=== PATIENT | female | born 1935 | race Caucasian/White ===

== ENCOUNTER 2020-03-28 14:41 | Observation (INO) | payer MEDICARE, BC ==
[2020-03-28] MEDS ORDERED: Sodium Chloride 0.9% 500 ML IV SCH (15:15)
[2020-03-28] MEDS: Sodium Chloride 0.9% 10 ML Syringe FLUSH PRN ×2 (15:22→19:49)
--- NOTE | 2020-03-28 15:27 | EDM.PDOC ---
ED HPI GENERAL MEDICAL PROBLEM - General Chief Complaint: General Stated Complaint: IN BY AMBULANCE Time Seen by Provider: 03/28/20 15:15 Source of Information: Reports: Patient, Old Records, RN, RN Notes Reviewed History Limitations: Reports: No Limitations - History of Present Illness INITIAL COMMENTS - FREE TEXT/NARRATIVE: Pt arrives to ER from home by ambulance with c/o of generalized weakness since getting a steroid injection to her neck yesterday. Pt states that every time she has steroid injections she gets a similar reaction, but this time it was a little more severe. Pt states she became weak and for a few hours felt too weak to walk. Now that she arrived in the ER she is able to walk again. Pt c/o her mouth very dry and she hasn't been getting up to drink water. Onset Date: 03/27/20 Duration: Improving Location: Reports: Generalized Severity: Moderate Improves with: Reports: None Worsens with: Reports: None Associated Symptoms: Reports: No Other Symptoms - Related Data Allergies Allergy/AdvReac Type Severity Reaction Status Date / Time atorvastatin [From Lipitor] Allergy Muscle Verified 03/28/20 15:05 Aches chlorpromazine Allergy Facial Verified 03/28/20 15:05 [From Thorazine] Swelling hydromorphone [From Dilaudid] Allergy Nausea Verified 03/28/20 15:05 lisinopril Allergy Cannot Verified 03/28/20 15:05 Remember meperidine [From Demerol] Allergy Nausea and Verified 03/28/20 15:05 Vomiting Contrast Dye Allergy Anaphylactic Uncoded 03/28/20 15:05 Shock Home Meds: Home Meds Aspirin [Adult Low Dose Aspirin EC] 81 mg PO DAILY 03/17/19 [History] Calcium Carbonate [Tums] 300 mg PO .PRN 03/17/19 [History] Latanoprost 1 drop EYEBOTH BEDTIME 03/17/19 [History] Omeprazole 20 mg PO DAILY 03/17/19 [History] hydroCHLOROthiazide [Hydrochlorothiazide] 25 mg PO DAILY 03/17/19 [History] Vitamin B Complex [B Complex] 1 each O2AERO DAILY 03/24/19 [History] Past Medical History HEENT History: Reports: Glaucoma, Impaired Vision, Other (See Below) Other HEENT History: wears glasses. upper partial. 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 compressed radial and ulnar nerve Neurological History: Reports: None Psychiatric History: Reports: Depression Endocrine/Metabolic History: Reports: Hypothyroidism Hematologic History: Reports: Anemia, B12 Deficiency, Blood Transfusion(s) Immunologic History: Reports: None Oncologic (Cancer) History: Reports: None Dermatologic History: Reports: None - Infectious Disease History Infectious Disease History: Reports: Chicken Pox, Measles, Mumps, Shingles - Past Surgical History HEENT Surgical History: Reports: Cataract Surgery Other HEENT Surgeries/Procedures: bilateral cataract surgery Cardiovascular Surgical History: Reports: None GI Surgical History: Reports: EGD, Other (See Below) Other GI Surgeries/Procedures: Exploratory Lap [place] Female Surgical History: Reports: Breast Biopsy, Section, Other (See Below) Other Female Surgeries/Procedures: HX of uterine surgery. x2 C-sections Musculoskeletal Surgical History: Reports: Shoulder Surgery, Other (See Below) Other Musculoskeletal Surgeries/Procedures:: Left ankle fx repair (pins and rods in place). Right shoulder surgery (has a plate). Right hand tendon lengthening. Intercostal block x2 Social & Family History - Family History Family Medical History: Noncontributory - Tobacco Use Smoking Status *Q: Never Smoker Second Hand Smoke Exposure: No - Caffeine Use Caffeine Use: Reports: None Other Caffeine Use: 1-2 cups daily - Recreational Drug Use Recreational Drug Use: No - Living Situation & Occupation Living situation: Reports: , with Spouse Occupation: Retired ED ROS GENERAL - Review of Systems Review Of Systems: Comprehensive ROS is negative, except as noted in HPI. ED EXAM, GENERAL - Physical Exam Exam: See Below Exam Limited By: No Limitations General Appearance: Alert, No Apparent Distress, Other (Frail elderly appearing female) Eye Exam: Bilateral Eye: Normal Inspection Nose: Normal Inspection Throat/Mouth: Normal Inspection, Normal Lips, Normal Voice, No Airway Compromise Head: Atraumatic, Normocephalic Neck: Normal Inspection, Non-Tender, Limited Range of Motion (Chronic/stable per pt). No: Lymphadenopathy (L), Lymphadenopathy (R) Respiratory/Chest: No Respiratory Distress, Lungs Clear, No Accessory Muscle Use, Chest Non-Tender, Decreased Breath Sounds Cardiovascular: Regular Rate, Rhythm, No Edema Peripheral Pulses: 3+: Radial (L), Radial (R) GI/Abdominal: Normal Bowel Sounds, Soft, Non-Tender Extremities: Non-Tender, No Pedal Edema, Normal Capillary Refill, Other (Left hand with subacute/resolving bruise and hematoma with dressing on left wrist, no removed for exam. Right upper extremity with intact motor and sensation, ch ronic arthritic joints). No: Joint Swelling Neurological: Alert, Oriented, CN II-XII Intact, Normal Cognition, No Motor/Sensory Deficits Psychiatric: Normal Affect, Normal Mood Skin Exam: Warm, Dry, Intact Course - Vital Signs Last Recorded V/S: Last Vital Signs Temp 98.2 F 03/28/20 15:02 Pulse 103 H 03/28/20 15:02 Resp 18 03/28/20 15:02 BP 166/65 H 03/28/20 15:02 Pulse Ox 93 L 03/28/20 15:02 - Orders/Labs/Meds Orders: Active Orders 24 hr Category Date Time Status Peripheral IV Care [RC] . DIRECTED Care 03/28/20 15:14 Active Sodium Chloride 0.9% [Normal Saline] 500 ml Med 03/28/20 15:15 Active IV .BOLUS Sodium Chloride 0.9% [Saline Flush] Med 03/28/20 15:13 Active 10 ml FLUSH ASDIRECTED PRN Peripheral IV Insertion Adult [OM.PC] Stat Oth 03/28/20 15:13 Ordered Medication Orders Sodium Chloride (Normal Saline) 500 mls @ 500 mls/hr IV .BOLUS DANILE Last Admin: 03/28/20 15:21 Dose: 500 mls/hr Documented by: DANIELLE Sodium Chloride (Saline Flush) 10 ml FLUSH ASDIRECTED PRN PRN Reason: Keep Vein Open Last Admin: 03/28/20 15:22 Dose: 10 ml Documented by: DANIELLE Labs: Laboratory Tests 03/28/20 03/28/20 Range/Units 15:21 15:21 WBC 8.3 (5.0-10.0) 10^3/uL RBC 3.99 L (4.2-5.4) 10^6/uL Hgb 10.4 L (12.0-16.0) g/dL Hct 33.6 L (37.0-47.0) % MCV 84.2 (80-100) fL MCH 26.1 L (27.0-34.0) pg MCHC 31.0 L (33.0-35.0) g/dL Plt Count 331 (150-450) 10^3/uL Neut % (Auto) 77.5 H (42.2-75.2) % Lymph % (Auto) 14.6 L (20.5-50.1) % [place] % (Auto) 7.1 (2-8) % Eos % (Auto) 0.6 L (1.0-3.0) % Baso % (Auto) 0.2 (0.0-1.0) % Sodium 135 L (136-145) mmol/L Potassium 3.9 (3.5-5.1) mmol/L Chloride 98 (98-107) mmol/L Carbon Dioxide 31 (21-32) mmol/L Anion Gap 9.9 (7-13) mEq/L BUN 19 H (7-18) mg/dL Creatinine 1.12 H (0.55-1.02) mg/dL Est Cr Clr Drug Dosing 35.00 mL/min Estimated GFR (MDRD) 46 BUN/Creatinine Ratio 17.0 (No establ ref range) Glucose 93 (74-99) mg/dL Calcium 8.7 (8.5-10.1) mg/dL Total Bilirubin 0.3 (0.2-1.0) mg/dL AST 19 (15-37) U/L ALT 15 (14-59) U/L Alkaline Phosphatase 85 (46-116) U/L Total Protein 7.0 (6.4-8.2) g/dL Albumin 2.7 L (3.4-5.0) g/dL Globulin 4.3 Albumin/Globulin Ratio 0.63 Meds: Medications Generic Name Dose Route Start Last Admin Trade Name Freq PRN Reason Stop Dose Admin Sodium Chloride 500 mls @ 500 mls/hr 03/28/20 15:15 03/28/20 15:21 Normal Saline IV 500 mls/hr .BOLUS DANIEL Administration Sodium Chloride 10 ml 03/28/20 15:13 03/28/20 15:22 Saline Flush FLUSH 10 ml ASDIRECTED PRN Administration Keep Vein Open - Re-Assessments/Exams Free Text/Narrative Re-Assessment/Exam: 03/28/20 15:52 Pt reports feeling much better, able to ambulate independently. Plan to d/c pt home to f/u in clinic for recheck later this week or early next week. Departure - Departure Time of Disposition: 16:16 Disposition: Home, Self-Care 01 Condition: Fair Clinical Impression: Dehydration, Generalized weakness, Medication side effect - Discharge Information *PRESCRIPTION DRUG MONITORING PROGRAM REVIEWED*: Not Applicable *COPY OF PRESCRIPTION DRUG MONITORING REPORT IN PATIENT CRYSTAL: Not Applicable Instructions: Dehydration, Adult, [id number], Weakness, [id number] Forms: ED Department Discharge Additional Instructions: Drink plenty of water, and eat healthy meals. Follow up in clinic if not improving as expected. Sepsis Event Note (ED) - Evaluation Sepsis Screening Result: No Definite Risk - Focused Exam Vital Signs: Vital Signs Temp Pulse Resp BP Pulse Ox 03/28/20 15:02 98.2 F 103 H 18 166/65 H 93 L - My Orders Last 24 Hours: My Active Orders 03/28/20 15:13 Sodium Chloride 0.9% [Saline Flush] 10 ml FLUSH ASDIRECTED PRN Peripheral IV Insertion Adult [OM.PC] Stat 03/28/20 15:14 Peripheral IV Care [RC] . DIRECTED 03/28/20 15:15 Sodium Chloride 0.9% [Normal Saline] 500 ml IV .BOLUS - Assessment/Plan Last 24 Hours: My Active Orders 03/28/20 15:13 Sodium Chloride 0.9% [Saline Flush] 10 ml FLUSH ASDIRECTED PRN Peripheral IV Insertion Adult [OM.PC] Stat 03/28/20 15:14 Peripheral IV Care [RC] . DIRECTED 03/28/20 15:15 Sodium Chloride 0.9% [Normal Saline] 500 ml IV .BOLUS
[2020-03-28 15:47] LABS: ANION GAP 9.9 mEq/L (7-13)
[2020-03-28] MEDS ORDERED: Ondansetron 4 MG/2 ML SDV IVPUSH PRN (18:04)
[2020-03-28] MEDS ORDERED: Acetaminophen 325 MG Tab PO PRN (18:04)
[2020-03-28] MEDS ORDERED: Ondansetron 4 MG Tab.DIS PO PRN (18:04)
[2020-03-28] MEDS ORDERED: Calcium Carbonate 500 MG Tab.Chew PO PRN (18:11)
[2020-03-28] MEDS ORDERED: Sodium Chloride 0.9% 1,000 ML IV SCH (18:15)
--- NOTE | 2020-03-28 18:49 | PCM.HP ---
H&P History of Present Illness - General Date of Service: 03/28/20 Admit Problem/Dx: Admission Diagnosis/Problem Admission Diagnosis/Problem Weakness Source of Information: Patient, Old Records, Provider - History of Present Illness Initial Comments - Free Text/Narative: Patient is a 84-year-old female with medical history significant for hypertension, dyslipidemia, postherpetic neuralgia, intercostal neuralgia, she of fall over 10 years ago with right arm fracture and radial and ulnar nerve injury. Had hardware placed. Reports that she underwent steroid shot to her neck for paresthesias in her right upper extremity. States that she had this treatment several years ago and did not have any issues with them. Reports that she is had profound weakness and spinning sensation that started right after getting the shot yesterday. States that she has felt weak and so decided to com e to the emergency room. Denies any falls. Reports that she had nausea yesterday but did not have any emesis. Reports intermittent cough with swallowing. Cough is nonproductive. Denies chest pain, shortness of breath, fevers, chills, diarrhea, constipation, dysuria, hematuria, edema, or any new symptoms. Denies tobacco, alcohol, or illicit drug use. - Related Data Allergies/Adverse Reactions: Allergies Allergy/AdvReac Type Severity Reaction Status Date / Time atorvastatin [From Lipitor] Allergy Muscle Verified 03/28/20 15:05 Aches chlorpromazine Allergy Facial Verified 03/28/20 15:05 [From Thorazine] Swelling hydromorphone [From Dilaudid] Allergy Nausea Verified 03/28/20 15:05 lisinopril Allergy Cannot Verified 03/28/20 15:05 Remember meperidine [From Demerol] Allergy Nausea and Verified 03/28/20 15:05 Vomiting Contrast Dye Allergy Anaphylactic Uncoded 03/28/20 15:05 Shock Home Medications: Home Meds Aspirin [Adult Low Dose Aspirin EC] 81 mg PO DAILY 03/17/19 [History] Calcium Carbonate [Tums] 300 mg PO DAILY PRN 03/17/19 [History] Latanoprost 1 drop EYEBOTH BEDTIME 03/17/19 [History] Omeprazole 20 mg PO DAILY 03/17/19 [History] hydroCHLOROthiazide [Hydrochlorothiazide] 25 mg PO DAILY 03/17/19 [History] Past Medical History HEENT History: Reports: Glaucoma, Impaired Vision, Other (See Below) Other HEENT History: wears glasses. upper partial. 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 compressed radial and ulnar nerve Neurological History: Reports: None Psychiatric History: Reports: Depression Endocrine/Metabolic History: Reports: Hypothyroidism Hematologic History: Reports: Anemia, B12 Deficiency, Blood Transfusion(s) Immunologic History: Reports: None Oncologic (Cancer) History: Reports: None Dermatologic History: Reports: None - Infectious Disease History Infectious Disease History: Reports: Chicken Pox, Measles, Mumps, Shingles - Past Surgical History HEENT Surgical History: Reports: Cataract Surgery Other HEENT Surgeries/Procedures: bilateral cataract surgery Cardiovascular Surgical History: Reports: None GI Surgical History: Reports: EGD, Other (See Below) Other GI Surgeries/Procedures: Exploratory Lap [place] Female Surgical History: Reports: Breast Biopsy, Section, Other (See Below) Other Female Surgeries/Procedures: HX of uterine surgery. x2 C-sections Musculoskeletal Surgical History: Reports: Shoulder Surgery, Other (See Below) Other Musculoskeletal Surgeries/Procedures:: Left ankle fx repair (pins and rods in place). Right shoulder surgery (has a plate). Right hand tendon lengthening. Intercostal block x2 Social & Family History - Family History Family Medical History: Noncontributory - Tobacco Use Smoking Status *Q: Never Smoker Used Tobacco, but Quit: No Second Hand Smoke Exposure: No - Caffeine Use Caffeine Use: Reports: Coffee Other Caffeine Use: 1-2 cups daily - Recreational Drug Use Recreational Drug Use: No - Living Situation & Occupation Living situation: Reports: , with Spouse Occupation: Retired H&P Review of Systems - Review of Systems: Review Of Systems: Comprehensive ROS is negative, except as noted in HPI. Exam - Exam Exam: See Below - Vital Signs Vital Signs: Last Vital Signs Temp 98.9 F 03/28/20 16:56 Pulse 106 H 03/28/20 16:56 Resp 18 03/28/20 16:56 BP 145/71 H 03/28/20 16:56 Pulse Ox 97 03/28/20 16:56 Weight: 141 lb 14.4 oz - Exam General: Alert, Oriented, Cooperative, Mild Distress HEENT: Conjunctiva Clear, Hearing Intact Neck: Supple, Trachea Midline Lungs: Clear to Auscultation, Normal Respiratory Effort Cardiovascular: Regular Rate, Regular Rhythm, Normal S1, Normal S2 GI/Abdominal Exam: Normal Bowel Sounds, Soft, Non-Tender, No Distention Extremities: No Pedal Edema, Other Peripheral Pulses: 1+: Radial (L), Radial (R), Dorsalis Pedis (L), Dorsalis Pedis (R) Skin: Warm, Dry, Intact Neuro Extensive - Mental Status: Alert, Oriented x3, Normal Mood/Affect, Normal Cognition, Memory Intact Psychiatric: Alert, Normal Affect, Normal Mood - Patient Data Lab Results Last 24 hrs: Laboratory Results - last 24 hr 03/28/20 03/28/20 Range/Units 15:21 15:21 WBC 8.3 (5.0-10.0) 10^3/uL RBC 3.99 L (4.2-5.4) 10^6/uL Hgb 10.4 L (12.0-16.0) g/dL Hct 33.6 L (37.0-47.0) % MCV 84.2 (80-100) fL MCH 26.1 L (27.0-34.0) pg MCHC 31.0 L (33.0-35.0) g/dL Plt Count 331 (150-450) 10^3/uL Neut % (Auto) 77.5 H (42.2-75.2) % Lymph % (Auto) 14.6 L (20.5-50.1) % [place] % (Auto) 7.1 (2-8) % Eos % (Auto) 0.6 L (1.0-3.0) % Baso % (Auto) 0.2 (0.0-1.0) % Sodium 135 L (136-145) mmol/L Potassium 3.9 (3.5-5.1) mmol/L Chloride 98 (98-107) mmol/L Carbon Dioxide 31 (21-32) mmol/L Anion Gap 9.9 (7-13) mEq/L BUN 19 H (7-18) mg/dL Creatinine 1.12 H (0.55-1.02) mg/dL Est Cr Clr Drug Dosing 35.00 mL/min Estimated GFR (MDRD) 46 BUN/Creatinine Ratio 17.0 (No establ ref range) Glucose 93 (74-99) mg/dL Calcium 8.7 (8.5-10.1) mg/dL Total Bilirubin 0.3 (0.2-1.0) mg/dL AST 19 (15-37) U/L ALT 15 (14-59) U/L Alkaline Phosphatase 85 (46-116) U/L Total Protein 7.0 (6.4-8.2) g/dL Albumin 2.7 L (3.4-5.0) g/dL Globulin 4.3 Albumin/Globulin Ratio 0.63 Result Diagrams: 03/28/20 15:21 03/28/20 15:21 - Problem List (1) Essential hypertension SNOMED Code(s): 38524618 ICD Code: I10 - ESSENTIAL (PRIMARY) HYPERTENSION Status: Acute Current Visit: Yes (2) Dyslipidemia SNOMED Code(s): 880148739 ICD Code: E78.5 - HYPERLIPIDEMIA, UNSPECIFIED Status: Acute Current Visit: Yes (3) Dehydration SNOMED Code(s): 99200958 ICD Code: E86.0 - DEHYDRATION Status: Acute Current Visit: Yes (4) Generalized weakness SNOMED Code(s): 31520567 ICD Code: R53.1 - WEAKNESS Status: Acute Current Visit: Yes (5) Medication side effect SNOMED Code(s): 045179695 ICD Code: T88.7XXA - UNSP ADVERSE EFFECT OF DRUG OR MEDICAMENT, INIT ENCNTR Status: Acute Current Visit: Yes Problem List Initiated/Reviewed/Updated: Yes Orders Last 24hrs: Active Orders 24 hr Category Date Time Status Patient Status [ADT] Routine ADT 03/28/20 18:04 Active Intake and Output [RC] QSHIFT Care 03/28/20 18:06 Active Oxygen Therapy [RC] PRN Care 03/28/20 18:04 Active Peripheral IV Care [RC] 09,21 Care 03/28/20 15:14 Active Up With Assistance [RC] ASDIRECTED Care 03/28/20 18:04 Active VTE/DVT Education [RC] PER UNIT ROUTINE Care 03/28/20 18:04 Active Vital Signs [RC] Q4H Care 03/28/20 18:04 Active BASIC METABOLIC PANEL,BMP [CHEM] AM Lab 03/29/20 05:11 Ordered MAGNESIUM [CHEM] AM Lab 03/29/20 05:11 Ordered PHOSPHORUS [CHEM] AM Lab 03/29/20 05:11 Ordered UA RFX MAHENDRA AND CULT IF INDIC [URIN] Stat Lab 03/28/20 16:40 Received Acetaminophen [Tylenol] Med 03/28/20 18:04 Active 650 mg PO Q4H PRN Aspirin [Halfprin] Med 03/29/20 09:00 Active 81 mg PO DAILY Calcium Carbonate [Tums] Med 03/28/20 18:11 Active 250 mg PO DAILY PRN Docusate Sodium/Sennosides [Senna Plus] Med 03/28/20 18:04 Active 1 tab PO BEDTIME PRN Heparin Sodium Med 03/28/20 22:00 Active 5,000 units SUBCUT Q8HR Latanoprost [Xalatan 0.005% Ophth Soln] Med 03/28/20 21:00 Active 0 ml EYEBOTH BEDTIME Omeprazole Med 03/29/20 09:00 Active 20 mg PO DAILY Ondansetron [Zofran ODT] Med 03/28/20 18:04 Active 4 mg PO Q6H PRN Ondansetron [Zofran] Med 03/28/20 18:04 Active 4 mg IVPUSH Q6H PRN Sodium Chloride 0.9% [Normal Saline] 1,000 ml Med 03/28/20 18:15 Active IV ASDIRECTED Sodium Chloride 0.9% [Normal Saline] 500 ml Med 03/28/20 15:15 Active IV .BOLUS Sodium Chloride 0.9% [Saline Flush] Med 03/28/20 15:13 Active 10 ml FLUSH ASDIRECTED PRN hydroCHLOROthiazide Med 03/29/20 09:00 Active 25 mg PO DAILY Peripheral IV Insertion Adult [OM.PC] Stat Oth 03/28/20 15:13 Ordered Resuscitation Status Routine Resus Stat 03/28/20 18:04 Ordered Medication Orders Acetaminophen (Tylenol) 650 mg PO Q4H PRN PRN Reason: Pain (mild 1-3) Aspirin (Halfprin) 81 mg PO DAILY DANIEL Calcium Carbonate/Glycine (Tums) 250 mg PO DAILY PRN PRN Reason: Heartburn Heparin Sodium (Porcine) (Heparin Sodium) 5,000 units SUBCUT Q8HR [facility] Hydrochlorothiazide (Hydrochlorothiazide) 25 mg PO DAILY [facility] Sodium Chloride (Normal Saline) 500 mls @ 500 mls/hr IV .BOLUS DANIEL Last Infusion: 03/28/20 16:29 Dose: 500 mls/hr Documented by: Admin: 03/28/20 15:21 Dose: 500 mls/hr Documented by: DANIELLE Sodium Chloride (Normal Saline) 1,000 mls @ 75 mls/hr IV ASDIRECTED DANIEL Stop: 03/29/20 06:16 Latanoprost (Xalatan 0.005% Ophth Soln) 0 ml EYEBOTH BEDTIME [facility] Omeprazole (Omeprazole) 20 mg PO DAILY [facility] Ondansetron HCl (Zofran Odt) 4 mg PO Q6H PRN PRN Reason: nausea, able to take PO Ondansetron HCl (Zofran) 4 mg IVPUSH Q6H PRN PRN Reason: Nausea/Vomiting Senna/Docusate Sodium (Senna Plus) 1 tab PO BEDTIME PRN PRN Reason: Constipation Sodium Chloride (Saline Flush) 10 ml FLUSH ASDIRECTED PRN PRN Reason: Keep Vein Open Last Admin: 03/28/20 15:22 Dose: 10 ml Documented by: DANIELLE Assessment/Plan Comment:: #Weakness #Medication side effect Patient reports pain sensation after getting steroid injection to the neck She also reports weakness since the injection. IV fluids Fall precautions PT and OT #Hypertension Continue records further #Dyslipidemia Not on any medications #GERD Continue Prilosec DVT prophylaxis: Heparin GI prophylaxis: Prilosec CODE STATUS: DNR/DNI per patient preference
[2020-03-28] MEDS ORDERED: cefTRIAXone 1 GM in Sodium Chloride 0.9% 50 ML IV SCH (19:45)
[2020-03-28] MEDS ORDERED: Latanoprost 0.005% Ophth Soln 2.5 ML Bottle EYEBOTH SCH (21:00)
[2020-03-28] MEDS: Heparin Sodium 5,000 Units/ML Vial SUBCUT SCH (21:39)
[2020-03-29] MEDS: Heparin Sodium 5,000 Units/ML Vial SUBCUT SCH ×2 (06:24→16:22)
[2020-03-29 07:10] LABS: ANION GAP 9.5 mEq/L (7-13); CHLORIDE,CL 99 mmol/L (98-107); SODIUM,NA 133 mmol/L (136-145)
[2020-03-29] MEDS ORDERED: Sodium Chloride 0.9% 10 ML Syringe FLUSH PRN (08:30)
[2020-03-29] MEDS ORDERED: Hydrochlorothiazide 25 MG Tab PO SCH (09:00)
[2020-03-29] MEDS ORDERED: Aspirin 81 MG Tab.EC PO SCH (09:00)
[2020-03-29] MEDS ORDERED: Omeprazole 20 MG Cap.CR PO SCH (09:00)
--- NOTE | 2020-03-29 14:28 | CT ---
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 Recent (2 days ago) cervical spine injection. Definite change from baseline clinical status in this patient with history "intercostal neuralgia". Scan technique: Volume acquisition of data emergency unenhanced CT scan of the head and brain obtained with the patient lying supine on the Siemens multi slice scanner [place], [place]. All data archived in the PACS system for storage, reformatting axial/sagittal/coronal planes and study. No comparison exams (CT or MRI) immediately available at this institution. Interpretation: ABNORMAL. 1. 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 Symmetric prominence of the underlying ventricular system. 2. *Acute/subacute, large, infratentorial, posterior fossa, BLEED (collection of blood centrally in the erika cistern, midline, posterior fossa). 3. 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 No edema or mass effect upon adjacent sulci or ipsilateral ventricle. 4. No supratentorial mass lesion. No sign of acute supratentorial intracerebral, intraventricular or subarachnoid bleed. Physiologic midline pineal and symmetric choroid plexus calcifications. 5. Symmetric clear pneumatization of the paranasal and mastoid sinuses. No inflammatory changes. 6. No basal skull fracture. No foreign bodies. Normal temporomandibular joints (TMJ). CONCLUSION: Posterior fossa bleed. Etiology uncertain. Chronic Multi-infarct ischemic disease.
--- NOTE | 2020-03-29 14:33 | PCM.DCSUM1 ---
Discharge Summary - Hospital Course Free Text/Narrative:: Patient is an 84-year-old female with medical history significant for hypertension, dyslipidemia, postherpetic neuralgia, intercostal neuralgia, and a fall about 10 years ago with right arm fracture and radial nerve and ulnar nerve injury. Patient reports that she had high blood placed. Reports that she underwent right stellate ganglion block on 03/27/2020. Presented to the ED with complaints of worsening weakness and difficulty walking. Reported that she had had such symptoms with her previous nerve blocks in the past but this time symptoms were worse. Her UA was positive. She was started on IV fluids and ceftriaxone. Today, family reported that patient had slurring of speech after the procedure. They were concerned that patient is much change compared to her baseline. CT brain was obtained which showed bleeding into the posterior fossa. Also showed areas of ischemia and encephalomalacia. Patient remains alert and oriented in mild acute distress. She was started on Cardene drip to bring systolic blood pressures to goal of less than 140 and diastolic goal of less than 90. Patient is being transferred to [facility] for higher level of care. Patient and her family were updated. Her daughter Marilu like to be updated on phone #[phone]. HPI Initial Comments: Patient is a 84-year-old female with medical history significant for hypertension, dyslipidemia, postherpetic neuralgia, intercostal neuralgia, she of fall over 10 years ago with right arm fracture and radial and ulnar nerve injury. Had hardware placed. Reports that she underwent steroid shot to her neck for paresthesias in her right upper extremity. States that she had this treatment several years ago and did not have any issues with them. Reports that she is had profound weakness and spinning sensation that started right after getting the shot yesterday. States that she has felt weak and so decided to come to the emergency room. Denies any falls. Reports that she had nausea yesterday but did not have any emesis. Reports intermittent cough with swallowing. Cough is nonproductive. Denies chest pain, shortness of breath, fevers, chills, diarrhea, constipation, dysuria, hematuria, edema, or any new symptoms. Denies tobacco, alcohol, or illicit drug use. Diagnosis: Stroke: Yes Modified [place] Scale: Mod.Sev.Disability ;Unable to Walk/Attend Bodily Needs W/O Assistance Modified [place] Scale Score: 4 - Discharge Data Discharge Date: 03/29/20 Discharge Disposition: DC/Tfer to Acute Hospital 02 Condition: Critical - Referral to Home Health Primary Care Physician: Avery Degroot MD - Discharge Diagnosis/Problem(s) (1) Essential hypertension SNOMED Code(s): 48919382 ICD Code: I10 - ESSENTIAL (PRIMARY) HYPERTENSION Status: Acute Current Visit: Yes (2) Dyslipidemia SNOMED Code(s): 859214728 ICD Code: E78.5 - HYPERLIPIDEMIA, UNSPECIFIED Status: Acute Current Visit: Yes (3) Dehydration SNOMED Code(s): 71773669 ICD Code: E86.0 - DEHYDRATION Status: Acute Current Visit: Yes (4) Generalized weakness SNOMED Code(s): 06095860 ICD Code: R53.1 - WEAKNESS Status: Acute Current Visit: Yes (5) Medication side effect SNOMED Code(s): 501596533 ICD Code: T88.7XXA - UNSP ADVERSE EFFECT OF DRUG OR MEDICAMENT, INIT ENCNTR Status: Acute Current Visit: Yes (6) Brain bleed SNOMED Code(s): 277714904 ICD Code: I61.9 - NONTRAUMATIC INTRACEREBRAL HEMORRHAGE, UNSPECIFIED Status: Acute Current Visit: Yes - Patient Summary/Data Consults: Consultations 03/29/20 10:26 OT Evaluation and Treatment [CONS] Routine PT Evaluation and Treatment [CONS] Routine - Discharge Plan *PRESCRIPTION DRUG MONITORING PROGRAM REVIEWED*: Not Applicable *COPY OF PRESCRIPTION DRUG MONITORING REPORT IN PATIENT CRYSTAL: Not Applicable Home Medications: Home Meds Calcium Carbonate [Tums] 300 mg PO DAILY PRN 03/17/19 [History] Latanoprost 1 drop EYEBOTH BEDTIME 03/17/19 [History] Omeprazole 20 mg PO DAILY 03/17/19 [History] hydroCHLOROthiazide [Hydrochlorothiazide] 25 mg PO DAILY 03/17/19 [History] cefTRIAXone [Rocephin] 1 gm IV Q24H vial 03/29/20 [Rx] Patient Handouts: Weakness, Kbcc-[id number], Dehydration, Adult, [id number] Referrals: Avery Degroot MD [Primary Care Provider] - - Discharge Summary/Plan Comment DC Time >30 min.: Yes - General Info Date of Service: 03/29/20 Admission Dx/Problem (Free Text: Admission Diagnosis/Problem Admission Diagnosis/Problem Weakness Subjective Update: Patient reports headache that improved with Tylenol last night. Reports that she continues to feel weak. Denies fevers, chills, nausea, vomiting, diarrhea, constipation, dysuria, hematuria, edema, or any new symptoms. - Patient Data Vitals - Most Recent: Last Vital Signs Temp 99.8 F 03/29/20 12:00 Pulse 93 03/29/20 12:00 Resp 20 03/29/20 12:00 BP 173/74 H 03/29/20 12:00 Pulse Ox 97 03/29/20 12:00 Weight - Most Recent: 141 lb 14.4 oz I&O - Last 24 hours: Intake & Output 03/28/20 03/29/20 03/29/20 22:59 06:59 14:59 Intake Total 50 300 310 Balance 50 300 310 Lab Results - Last 24 hrs: Laboratory Results - last 24 hr 03/28/20 03/28/20 03/28/20 Range/Units 15:21 15:21 16:40 WBC 8.3 (5.0-10.0) 10^3/uL RBC 3.99 L (4.2-5.4) 10^6/uL Hgb 10.4 L (12.0-16.0) g/dL Hct 33.6 L (37.0-47.0) % MCV 84.2 (80-100) fL MCH 26.1 L (27.0-34.0) pg MCHC 31.0 L (33.0-35.0) g/dL Plt Count 331 (150-450) 10^3/uL Neut % (Auto) 77.5 H (42.2-75.2) % Lymph % (Auto) 14.6 L (20.5-50.1) % [place] % (Auto) 7.1 (2-8) % Eos % (Auto) 0.6 L (1.0-3.0) % Baso % (Auto) 0.2 (0.0-1.0) % Sodium 135 L (136-145) mmol/L Potassium 3.9 (3.5-5.1) mmol/L Chloride 98 (98-107) mmol/L Carbon Dioxide 31 (21-32) mmol/L Anion Gap 9.9 (7-13) mEq/L BUN 19 H (7-18) mg/dL Creatinine 1.12 H (0.55-1.02) mg/dL Est Cr Clr Drug Dosing 35.00 mL/min Estimated GFR (MDRD) 46 BUN/Creatinine Ratio 17.0 (No establ ref range) Glucose 93 (74-99) mg/dL Calcium 8.7 (8.5-10.1) mg/dL Phosphorus (2.6-4.7) mg/dL Magnesium (1.8-2.4) mg/dL Total Bilirubin 0.3 (0.2-1.0) mg/dL AST 19 (15-37) U/L ALT 15 (14-59) U/L Alkaline Phosphatase 85 (46-116) U/L Total Protein 7.0 (6.4-8.2) g/dL Albumin 2.7 L (3.4-5.0) g/dL Globulin 4.3 Albumin/Globulin Ratio 0.63 Urine Color Yellow (YELLOW) Urine Appearance Slightly cloudy (CLEAR) Urine pH 7.0 (5.0-9.0) Ur Specific [place] 1.025 (1.005-1.030) Urine Protein Trace H (NEGATIVE) Urine Glucose (UA) Negative (NEGATIVE) Urine Ketones Negative (NEGATIVE) Urine Occult Blood Trace-intact H (NEGATIVE) Urine Nitrite Negative (NEGATIVE) Urine Bilirubin Negative (NEGATIVE) Urine Urobilinogen 0.2 (0.2-1.0) mg/dL Ur Leukocyte Esterase Small H (NEGATIVE) Urine RBC 0-5 /HPF Urine WBC 40-50 H (0-5/HPF) /HPF Ur Epithelial Cells Rare (NOT SEEN) /HPF Amorphous Sediment Few (NOT SEEN) /HPF Urine Bacteria Many H (0-FEW/HPF) /HPF Urine Mucus Not seen (NOT SEEN) /LPF 03/29/20 Range/Units 06:18 WBC (5.0-10.0) 10^3/uL RBC (4.2-5.4) 10^6/uL Hgb (12.0-16.0) g/dL Hct (37.0-47.0) % MCV (80-100) fL MCH (27.0-34.0) pg MCHC (33.0-35.0) g/dL Plt Count (150-450) 10^3/uL Neut % (Auto) (42.2-75.2) % Lymph % (Auto) (20.5-50.1) % [place] % (Auto) (2-8) % Eos % (Auto) (1.0-3.0) % Baso % (Auto) (0.0-1.0) % Sodium 133 L (136-145) mmol/L Potassium 3.5 (3.5-5.1) mmol/L Chloride 99 (98-107) mmol/L Carbon Dioxide 28 (21-32) mmol/L Anion Gap 9.5 (7-13) mEq/L BUN 14 (7-18) mg/dL Creatinine 0.88 (0.55-1.02) mg/dL Est Cr Clr Drug Dosing 44.55 mL/min Estimated GFR (MDRD) > 60 BUN/Creatinine Ratio (No establ ref range) Glucose 82 (74-99) mg/dL Calcium 8.2 L (8.5-10.1) mg/dL Phosphorus 2.7 (2.6-4.7) mg/dL Magnesium 1.9 (1.8-2.4) mg/dL Total Bilirubin (0.2-1.0) mg/dL AST (15-37) U/L ALT (14-59) U/L Alkaline Phosphatase (46-116) U/L Total Protein (6.4-8.2) g/dL Albumin (3.4-5.0) g/dL Globulin Albumin/Globulin Ratio Urine Color (YELLOW) Urine Appearance (CLEAR) Urine pH (5.0-9.0) Ur Specific [place] (1.005-1.030) Urine Protein (NEGATIVE) Urine Glucose (UA) (NEGATIVE) Urine Ketones (NEGATIVE) Urine Occult Blood (NEGATIVE) Urine Nitrite (NEGATIVE) Urine Bilirubin (NEGATIVE) Urine Urobilinogen (0.2-1.0) mg/dL Ur Leukocyte Esterase (NEGATIVE) Urine RBC /HPF Urine WBC (0-5/HPF) /HPF Ur Epithelial Cells (NOT SEEN) /HPF Amorphous Sediment (NOT SEEN) /HPF Urine Bacteria (0-FEW/HPF) /HPF Urine Mucus (NOT SEEN) /LPF MAHENDRA Results - Last 24 hrs: Microbiology 03/28/20 16:40 Urine Culture - Preliminary Urine, Voided Med Orders - Current: Current Medications Acetaminophen (Tylenol) 650 mg PO Q4H PRN PRN Reason: Pain (mild 1-3) Last Admin: 03/29/20 10:19 Dose: 650 mg Documented by: Aspirin (Halfprin) 81 mg PO DAILY [facility] Calcium Carbonate/Glycine (Tums) 250 mg PO DAILY PRN PRN Reason: Heartburn Heparin Sodium (Porcine) (Heparin Sodium) 5,000 units SUBCUT Q8HR [facility] Last Admin: 03/29/20 06:24 Dose: 5,000 units Documented by: Hydrochlorothiazide (Hydrochlorothiazide) 25 mg PO DAILY [facility] Ceftriaxone Sodium 1 gm/ (Sodium Chloride) 50 mls @ 100 mls/hr IV Q24H [facility] Latanoprost (Xalatan 0.005% Ophth Soln) 0 ml EYEBOTH BEDTIME [facility] Last Admin: 03/28/20 21:38 Dose: 1 drop Documented by: Omeprazole (Omeprazole) 20 mg PO DAILY [facility] Ondansetron HCl (Zofran Odt) 4 mg PO Q6H PRN PRN Reason: nausea, able to take PO Ondansetron HCl (Zofran) 4 mg IVPUSH Q6H PRN PRN Reason: Nausea/Vomiting Senna/Docusate Sodium (Senna Plus) 1 tab PO BEDTIME PRN PRN Reason: Constipation Sodium Chloride (Saline Flush) 10 ml FLUSH ASDIRECTED PRN PRN Reason: Keep Vein Open Discontinued Medications Aspirin (Halfprin) 81 mg PO DAILY [facility] Last Admin: 03/29/20 09:14 Dose: 81 mg Documented by: Hydrochlorothiazide (Hydrochlorothiazide) 25 mg PO DAILY [facility] Last Admin: 03/29/20 09:14 Dose: 25 mg Documented by: Sodium Chloride (Normal Saline) 500 mls @ 500 mls/hr IV .BOLUS [facility] Last Infusion: 03/28/20 16:29 Dose: Infused Documented by: Sodium Chloride (Normal Saline) 1,000 mls @ 75 mls/hr IV ASDIRECTED [facility] Stop: 03/29/20 06:16 Last Admin: 03/28/20 19:50 Dose: 75 mls/hr Documented by: Ceftriaxone Sodium 1 gm/ (Sodium Chloride) 50 mls @ 100 mls/hr IV Q24H [facility] Last Infusion: 03/28/20 21:07 Dose: Infused Documented by: Omeprazole (Omeprazole) 20 mg PO DAILY [facility] Last Admin: 03/29/20 09:14 Dose: 20 mg Documented by: Sodium Chloride (Saline Flush) 10 ml FLUSH ASDIRECTED PRN PRN Reason: Keep Vein Open Last Admin: 03/28/20 19:49 Dose: 10 ml Documented by: - Exam General: Reports: Alert, Oriented, Mild Distress HEENT: Reports: Pupils Equal, Pupils Reactive, Mucous Membr. Moist/[place] Neck: Reports: Supple Lungs: Reports: Clear to Auscultation, Normal Respiratory Effort Cardiovascular: Reports: Regular Rate, Regular Rhythm GI/Abdominal Exam: Normal Bowel Sounds, Soft, Non-Tender Extremities: Normal Inspection (Healed right upper arm wound. ), Non-Tender, No Pedal Edema Skin: Reports: Warm, Dry, Intact Neurological: Reports: Other (Dysarthria, gait imbalance, headache) Psy/Mental Status: Reports: Alert, Normal Affect, Normal Mood
[2020-03-29] MEDS ORDERED: cefTRIAXone 1 GM in Sodium Chloride 0.9% 50 ML IV SCH (18:00)
[2020-03-30] MEDS ORDERED: ASPIRIN 81 MG PO SCH (09:00)
[2020-03-30] MEDS ORDERED: OMEPRAZOLE 20 MG PO SCH (09:00)
[2020-03-30] MEDS ORDERED: HYDROCHLOROTHIAZIDE 25 MG PO SCH (09:00)
== END 2020-03-29 14:50 ==
LOC: DL.ED 14:41 → DL.MS 16:53 → UNDOADMOB 16:53 → DL.MS 18:04
PROVIDERS: ADMIT Internal Medicine; ATTEND Internal Medicine
DX: R53.1 Weakness (principal); T38.0X5A Adverse effect of glucocorticoids and synthetic analogues, initial encounter; R11.0 Nausea; R26.2 Difficulty in walking, not elsewhere classified; E78.00 Pure hypercholesterolemia, unspecified; I10 Essential (primary) hypertension; E03.9 Hypothyroidism, unspecified; F32.9 Major depressive disorder, single episode, unspecified; G58.0 Intercostal neuropathy; E86.0 Dehydration; B02.29 Other postherpetic nervous system involvement; I61.9 Nontraumatic intracerebral hemorrhage, unspecified; G93.89 Other specified disorders of brain; Z66 Do not resuscitate; Z88.8 Allergy status to other drugs, medicaments and biological substances; Z91.041 Radiographic dye allergy status; Z79.82 Long term (current) use of aspirin; Z79.899 Other long term (current) drug therapy; Z91.81 History of falling; Z87.828 Personal history of other (healed) physical injury and trauma
CPT/HCPCS: 36415; 70450; 80048; 80053; 81001; 81003; 83735; 84100; 85025; 87086; 87088; 87186; 96361; 96365; 96372; 97162; 97166; 99217; 99219; 99283; 99285; A9270; G0378; J0696; J1644; J7030; J7040; J7050; 96360

== ENCOUNTER 2021-09-13 09:27 | Emergency (ER) | payer MEDICARE, BC | END 2021-09-13 13:41 | disposition home or self-care (01) | LOC: DL.ED 09:27 | DX: N39.0 Urinary tract infection, site not specified (principal); R31.9 Hematuria, unspecified; I10 Essential (primary) hypertension; E03.9 Hypothyroidism, unspecified; Z87.891 Personal history of nicotine dependence; Z91.041 Radiographic dye allergy status; Z88.7 Allergy status to serum and vaccine; Z88.8 Allergy status to other drugs, medicaments and biological substances; Z79.899 Other long term (current) drug therapy; Z79.82 Long term (current) use of aspirin | CPT/HCPCS: 36415; 80053; 81001; 85025; 87086; 87088; 87186; 99284 ==